=== PATIENT | female | born 1990 ===

== ENCOUNTER → 2024-09-17 | Outpatient (CLI) | payer OTHER ==
[2024-09-18 07:27] LABS: Bacterial Vaginosis PCR Negative (NEGATIVE); Candida Group, PCR NOT DETECTED (NOT DETECT); Candida glabrata-krusei, PCR NOT DETECTED (NOT DETECT)
[2024-09-18 08:03] LABS: Chlamydia Trachomatis Cervix NOT DETECTED (NOT DETECT); Neisseria Gonorrhoea Cervix NOT DETECTED (NOT DETECT)
== END | disposition home or self-care (01) ==
LOC: LAB 17:28 → LAB SHORT 17:28
PROVIDERS: Nurse Practitioner Family
DX: N89.8 Other specified noninflammatory disorders of vagina (principal)
CPT/HCPCS: 87481; 87491; 87591; 87661; 87801